=== PATIENT | female | born 1990 | race Two or more races ===

== ENCOUNTER 2018-01-25 21:44 | Emergency (ER) | payer OTHER ==
[~2018-01-25] VITALS: Ht 180.3 cm; Wt 116.4 kg
[2018-01-25 21:47] VITALS: BP 155/90
== END 2018-01-25 23:06 | disposition home or self-care (01) ==
LOC: ED 22:14
DX: G89.11 Acute pain due to trauma (principal); M54.6 Pain in thoracic spine; M25.532 Pain in left wrist; Z88.1 Allergy status to other antibiotic agents; V49.49XA Driver injured in collision with other motor vehicles in traffic accident, initial encounter; Y93.89 Activity, other specified; Y92.89 Other specified places as the place of occurrence of the external cause; Y99.8 Other external cause status
CPT/HCPCS: 99281

== ENCOUNTER 2021-01-03 14:15 | Emergency (ER) | payer SELFPAY ==
[~2021-01-03] VITALS: Ht 182.9 cm; Wt 98.6 kg
--- NOTE | 2021-01-03 15:06 | NUR ---
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
[2021-01-03 16:38] LABS: BASOPHILS % (AUTO) 4 % (0-1); EOSINOPHILS % (AUTO) 1 % (1-7); LYMPHOCYTES % (AUTO) 37 % (22-44); MEAN CORPUSCULAR HEMOGLOBIN 30.5 pg (27.0-34.8); MEAN CORPUSCULAR HGB CONC 33.5 g/dL (32.4-35.8); MEAN PLATELET VOLUME 8.8 fL (7.4-10.4); MONOCYTES % (AUTO) 8 % (2-9); NEUTROPHILS % (AUTO) 49 % (42-75); PLATELET COUNT 72 x10^3/uL (130-400); RED BLOOD COUNT 4.14 x10^6/uL (3.82-5.3); RED CELL DISTRIBUTION WIDTH 18.6 % (9.6-15.2)
--- NOTE | 2021-01-03 16:47 | NUR ---
ASSUMED CARE OF PATIENT. REPORT GIVEN FROM CARLITOS ARTEAGA
[2021-01-03 16:52] LABS: ALANINE AMINOTRANSFERASE 33 U/L (12-78); ALBUMIN 2.5 g/dL (3.4-5.0); ANION GAP 7 mmol/L (5-15); CHLORIDE 106 mmol/L (98-107)
[2021-01-03 16:56] LABS: INTERNATIONAL NORMALIZED RATIO 1.36 (0.93-1.1); PROTHROMBIN TIME 14.3 Seconds (9.6-11.5)
[2021-01-03 16:57] LABS: ALKALINE PHOSPHATASE 132 U/L (45-117); BILIRUBIN,TOTAL 3.6 mg/dL (0.2-1.0); CREATININE 0.53 mg/dL (0.55-1.02)
[2021-01-03 17:25] LABS: MICROSCOPIC INDICATED
--- NOTE | 2021-01-03 18:32 | NUR ---
BREAK RN- PT RESTING IN BED, CALL IGHT IN REACH.
[2021-01-03 18:33] VITALS: BP 142/85
--- NOTE | 2021-01-03 18:46 | NUR ---
ED RN to ED RN handoff report received from CARLITOS Miles.
--- NOTE | 2021-01-03 19:07 | NUR ---
REPORT GIVEN TO CARLITOS HAYNES
== END 2021-01-03 20:06 | disposition home or self-care (01) ==
LOC: ED 19:57
DX: K80.20 Calculus of gallbladder without cholecystitis without obstruction (principal); E11.43 Type 2 diabetes mellitus with diabetic autonomic (poly)neuropathy; D69.6 Thrombocytopenia, unspecified; I10 Essential (primary) hypertension
CPT/HCPCS: 36415; 76700; 80053; 81001; 83036; 84702; 85025; 85610; 85730; 87077; 87086; 87186; 99284